=== PATIENT | male | born 1975 | race Two or more races ===

== ENCOUNTER 2017-03-14 00:36 | Emergency (ER) | payer OTHER ==
[~2017-03-14] VITALS: Ht 180.3 cm; Wt 113.4 kg
--- NOTE | 2017-03-14 00:45 | NUR ---
at bedside for eval.
[2017-03-14] MEDS ORDERED: METO-304 PO (00:48)
[2017-03-14] MEDS ORDERED: ESOM20CA PO (00:48)
[2017-03-14] MEDS ORDERED: ASPIRIN 81 MG TAB.CHEW PO ONE (01:00)
[2017-03-14] MEDS ORDERED: ADENOSINE 6 MG/2 ML SYR IV ONE ×4 (01:00→01:15)
[2017-03-14] MEDS ORDERED: AMIODARONE HCL IV 900 MG in IV DEXTROSE 5% 482 ML IV PRN (01:15)
[2017-03-14] MEDS ORDERED: AMIODARONE HCL IV 150 MG in IV DEXTROSE 5% 100 ML IV ONE (01:15)
[2017-03-14] MEDS ORDERED: AMIODARONE HCL 150 MG/3 ML VIAL IV ONE ×2 (01:17→01:30)
[2017-03-14] MEDS ORDERED: ASPIRIN 81 MG TAB.CHEW ONE (01:29)
[2017-03-14] MEDS ORDERED: VERAPAMIL 5 MG/2 ML VIAL IV ONE ×2 (01:30→01:36)
[2017-03-14] MEDS ORDERED: CALCIUM GLUCONATE IV 0.1 GM in IV DEXTROSE 5% 50 ML IV ONE (01:30)
[2017-03-14 01:35] LABS: BASOPHILS # (AUTO) 0.1 K/uL (0.0-8.0); BASOPHILS % (AUTO) 0.7 % (0.0-2.0); EOSINOPHILS # (AUTO) 0.2 K/uL (0.0-0.7); EOSINOPHILS % (AUTO) 2.5 % (0.0-7.0); HEMATOCRIT 42.1 % (40-50); HEMOGLOBIN 14.1 G/DL (14.0-18.0); LYMPHOCYTES # (AUTO) 4.1 K/UL (0.8-4.8); LYMPHOCYTES % (AUTO) 46.6 % (20.5-51.5); MEAN CORPUSCULAR HEMOGLOBIN 28.8 UUG (27.0-31.0); MEAN CORPUSCULAR HGB CONC 34 g/dL (32.0-37.0); MEAN CORPUSCULAR VOLUME 85.9 FL (82.0-92.0); MONOCYTES # (AUTO) 0.4 K/UL (0.1-1.30); MONOCYTES % (AUTO) 4.6 % (0.0-11.0); NEUTROPHILS # (AUTO) 4.1 K/UL (1.8-8.9); NEUTROPHILS % (AUTO) 45.6 % (38.5-71.5); PLATELET COUNT (AUTO) 222 K/UL (150-450); WHITE BLOOD COUNT (AUTO) 8.9 K/UL (4.0-11.2)
[2017-03-14] MEDS ORDERED: CALCIUM GLUCONATE 1 GM/10 ML VIAL IV ONE (01:36)
[2017-03-14 01:50] LABS: ALANINE AMINOTRANSFERASE 191 U/L (16-63); ALKALINE PHOSPHATASE 60 U/L (50-136); BILIRUBIN,DIRECT < 0.1 mg/dL (0.0-0.2); BILIRUBIN,TOTAL 0.2 mg/dL (0.2-1.0); CARBON DIOXIDE 26 mmol/L (21-32); CHLORIDE 103 mmol/L (98-107); CREATININE 1.1 mg/dL (0.6-1.3); GLUCOSE 145 mg/dL (74-106); POTASSIUM 3.9 mmol/L (3.5-5.1); TOTAL PROTEIN, SERUM 7.1 g/dL (6.4-8.2); UREA NITROGEN, BLOOD 20 mg/dL (7-18)
[2017-03-14 02:06] LABS: ASPARTATE AMINOTRANSFERASE 147 U/L (15-37)
[2017-03-14 05:06] VITALS: BP 117/71
--- NOTE | 2017-03-14 05:06 | NUR ---
Patient discharged to home in stable conditon. Written and verbal after care instructions given. Patient verbalizes understanding of instructions. patient left with stable gait, accompanied by girlfriend.
== END 2017-03-14 05:07 | disposition home or self-care (01) ==
LOC: ER 00:41
DX: I47.1 Supraventricular tachycardia (principal); R10.13 Epigastric pain
CPT/HCPCS: 36415; 70030-TC; 71010; 85025; 85730; 93005; A4663; J0153; J0282; J0610; J3490